=== PATIENT | female | born 1995 | race American Indian/Alaskan Native ===

== ENCOUNTER 2017-07-04 18:18 | Emergency (ER) | payer MEDICAID ==
[2017-07-04 21:03] LABS: Basophils % (Auto) 0.5 % (0.0-1.8); Eosinophils % (Auto) 0.5 % (0.0-4.3); Hematocrit 40.1 % (30.3-42.9); Hemoglobin 13.2 gm/dl (10.1-14.3); Lymphocytes # (Auto) 2.8 K/mm3 (1.2-5.4); Lymphocytes % (Auto) 30.9 % (13.4-35.0); Mean Corpuscular HGB Conc 33 % (30-34); Mean Corpuscular Volume 78 fl (79-97); Monocytes # (Auto) 0.8 K/mm3 (0.0-0.8); Monocytes % (Auto) 8.5 % (0.0-7.3); Platelet Count 235 K/mm3 (140-440); Red Blood Count 5.15 M/mm3 (3.65-5.03); Red Cell Distribution Width 16.3 % (13.2-15.2)
[2017-07-04 21:05] LABS: Mean Corpuscular Hemoglobin 26 pg (28-32)
[2017-07-04 21:09] LABS: Bacteria,Urine 1+ /HPF (Negative); Bilirubin,Urine NEG (Negative); Blood,Urine LG (Negative); Color,Urine Yellow (Yellow); Mucus,Urine FEW /HPF; Nitrite,Urine NEG (Negative); Protein,Urine <15 mg/dL mg/dL (Negative)
--- NOTE | 2017-07-05 02:16 | Ultrasound Report ---
FINAL REPORT EXAM: US OB TRANSVAGINAL HISTORY: abd and vag bleed TECHNIQUE: Transvaginal imaging was obtained the pelvis along with Doppler interrogation of the uterus and adnexa. FINDINGS: The uterus anteverted measuring 10 cm x 5.1 cm x 5.7 cm. Within the uterus is a gestational sac containing a yolk sac and pole. The crown-rump length is 2.9 millimeters corresponding to a 5 week 6 day IUP. The heart rate is 88 BPM. The cervix is closed. There is minimal free fluid the pelvis. The maternal right ovary is normal size contour and echotexture measuring 2.7 cm x 1.6 cm x 2.1 cm. The left ovary measures 2.7 cm x 1.6 cm x 1.9 cm. There is a 1.8 cm hypoechoic area possibly representing hemorrhagic cyst. IMPRESSION: Viable 5 week 6 day IUP as described. The heart is 80 BPM which is low. Follow-up study recommended. No evidence of a subchorionic hemorrhage. Minimal free fluid the pelvis.
--- NOTE | 2017-07-05 02:17 | Ultrasound Report ---
FINAL REPORT EXAM: US OB < = 14 WEEKS FETUS HISTORY: abd and vag bleed TECHNIQUE: Transabdominal imaging was obtained of the pelvis including Doppler interrogation of the uterus and adnexa. FINDINGS: The uterus is anteverted measuring 10 cm x 5.1 cm x 5.7 cm. Within the uterus is a gestational sac containing a pole and yolk sac. The pole measures 2.9 millimeters corresponding to a 5 week 6 day IUP. The heart rate is 80 BPM which is slightly diminished. There is no evidence of a subchorionic hemorrhage. There is minimal free fluid the pelvis. The maternal right ovary is normal size contour and echotexture measuring 2.7 cm x 1.6 cm x 2.1 cm. The maternal left ovary measures 2.7 cm x 1.6 cm x 1.9 cm. There is a hypoechoic focus measuring 1.8 cm in diameter possibly representing a hemorrhagic cyst. IMPRESSION: Single viable IUP, 5 weeks 6 day. The heart rate is 88 BPM which is below normal range. Follow-up studies recommended. 1.8 cm hypoechoic area in the left ovary possibly representing a hemorrhagic cyst. Minimal free fluid in the pelvis.
[2017-07-05 11:07] VITALS: BP 103/59
--- NOTE | 2017-07-05 11:16 | Emergency Department Report ---
HPI - General Chief Complaint: Vaginal Bleeding Time Seen by Provider: 07/05/17 11:10 - [facility] HPI: Patient is a 21-year-old female presents to ED complaining of vaginal bleeding times one week. Patient states about 2 weeks ago she took a home urine test was positive. She states about a week ago she states x-rays of vaginal spotting and 2 days ago for vaginal spotting got heavier. Patient states she did have sexual intercourse 2 days ago and noticed that the bleeding worsened after sexual intercourse. She states she has an appointment on 2017 with [facility]. Patient states this is her fifth and has 4 living children. She denies fevers/chills/nausea/vomiting/lower pelvic pain/dysuria/hematuria. ED Past Medical Hx - Past Medical History Previous Medical History?: Yes Hx Hypertension: No Hx Congestive Heart Failure: No Hx Diabetes: No Hx Deep Vein Thrombosis: No Hx Renal Disease: No Hx Sickle Cell Disease: No Hx Seizures: No Hx Asthma: Yes Hx COPD: No Hx HIV: No - Surgical History Past Surgical History?: No - Social History Smoking Status: Never Smoker Substance Use Type: Alcohol - Medications Home Medications: Home Medications Medication Instructions Recorded Confirmed Last Taken Type Vit Calc,Iron,Folic 1 each PO QDAY #40 tablet 07/05/17 Unknown Rx [ Vitamins] ED Review of Systems ROS: Stated complaint: POSSIBLE MISCARRAIGE Other details as noted in HPI Constitutional: denies: chills, fever Eyes: denies: eye pain, eye discharge, vision change ENT: denies: ear pain, throat pain Respiratory: denies: cough, shortness of breath, wheezing Cardiovascular: denies: chest pain, palpitations Endocrine: no symptoms reported Gastrointestinal: denies: abdominal pain, nausea, vomiting, diarrhea, constipation Genitourinary: other (vag bleed). denies: urgency, dysuria, frequency, hematuria, discharge Musculoskeletal: denies: back pain, joint swelling, arthralgia Skin: denies: rash, lesions Neurological: denies: headache, weakness, paresthesias Psychiatric: denies: anxiety, depression Hematological/Lymphatic: denies: easy bleeding, easy bruising Physical Exam - Physical Exam Vital Signs: Vital Signs 07/04/17 07/05/17 07/05/17 20:01 04:12 11:06 Temperature 98.7 F 98.1 F Pulse Rate 93 H 86 77 Respiratory 18 18 18 Rate Blood Pressure 124/83 125/75 Blood Pressure 103/59 [Left] O2 Sat by Pulse 98 99 99 Oximetry Physical Exam: GENERAL: Alert and oriented x3, no apparent distress, Normal Gait, atraumatic. HEAD: Head is normocephalic and a-traumatic. LUNGS: Symetrical with respiration, No wheezing, no rales or crackles, CTAB. HEART: S1, S2 present, regular rate and rhythm without murmur, no rubs, no gallops. Non tender to palpation ABDOMEN: No organomegaly was noted,Positive bowel sounds, soft, and non- distended. . Nontender to palpation on all Quadrants, NO CVA tenderness. BACK: Full range of motion, no spinal tenderness, nontender to palpation. GENITOURINARY: External genitalia without erythema, exudate or discharge. Vaginal vault is without discharge. Cervix is of normal color without lesion. Cervical os is closed. mild dark spot blood noted. Uterus is noted to be of normal size and nontender. No cervical motion tenderness. No masses are palpated. The adnexa are without masses or tenderness. NEUROLOGIC: The patient is cooperative with no focal neurologic deficits. SKIN: Warm and dry, No lesions, No ulceration or induration present. ED Course Vital Signs 07/04/17 07/05/17 07/05/17 20:01 04:12 11:06 Temperature 98.7 F 98.1 F Pulse Rate 93 H 86 77 Respiratory 18 18 18 Rate Blood Pressure 124/83 125/75 Blood Pressure 103/59 [Left] O2 Sat by Pulse 98 99 99 Oximetry ED Medical Decision Making - Lab Data Result diagrams: 07/04/17 20:20 Laboratory Last Values WBC 8.9 K/mm3 (4.5-11.0) 07/04/17 20:20 RBC 5.15 M/mm3 (3.65-5.03) H 07/04/17 20:20 Hgb 13.2 gm/dl (10.1-14.3) 07/04/17 20:20 Hct 40.1 % (30.3-42.9) 07/04/17 20:20 MCV 78 fl (79-97) L 07/04/17 20:20 MCH 26 pg (28-32) L 07/04/17 20:20 MCHC 33 % (30-34) 07/04/17 20:20 RDW 16.3 % (13.2-15.2) H 07/04/17 20:20 Plt Count 235 K/mm3 (140-440) 07/04/17 20:20 Lymph % (Auto) 30.9 % (13.4-35.0) 07/04/17 20:20 [place] % (Auto) 8.5 % (0.0-7.3) H 07/04/17 20:20 Eos % (Auto) 0.5 % (0.0-4.3) 07/04/17 20:20 Baso % (Auto) 0.5 % (0.0-1.8) 07/04/17 20:20 Lymph # 2.8 K/mm3 (1.2-5.4) 07/04/17 20:20 [place] # 0.8 K/mm3 (0.0-0.8) 07/04/17 20:20 Eos # 0.0 K/mm3 (0.0-0.4) 07/04/17 20:20 Baso # 0.0 K/mm3 (0.0-0.1) 07/04/17 20:20 Seg Neutrophils % 59.6 % (40.0-70.0) 07/04/17 20:20 Seg Neutrophils # 5.3 K/mm3 (1.8-7.7) 07/04/17 20:20 HCG, Qual Positive (Negative) 07/04/17 20:20 HCG, Quant 5021 mIU/mL (0-4) H 07/04/17 20:20 Urine Color Yellow (Yellow) 07/04/17 20:37 Urine Turbidity Clear (Clear) 07/04/17 20:37 Urine pH 5.0 (5.0-7.0) 07/04/17 20:37 Ur Specific [place] 1.019 (1.003-1.030) 07/04/17 20:37 Urine Protein <15 mg/dl mg/dL (Negative) 07/04/17 20:37 Urine Glucose (UA) Neg mg/dL (Negative) 07/04/17 20:37 Urine Ketones Neg mg/dL (Negative) 07/04/17 20:37 Urine Blood Lg (Negative) 07/04/17 20:37 Urine Nitrite Neg (Negative) 07/04/17 20:37 Urine Bilirubin Neg (Negative) 07/04/17 20:37 Urine Urobilinogen 2.0 mg/dL (<2.0) 07/04/17 20:37 Ur Leukocyte Esterase Sm (Negative) 07/04/17 20:37 Urine WBC (Auto) 17.0 /HPF (0.0-6.0) H 07/04/17 20:37 Urine RBC (Auto) 15.0 /HPF (0.0-6.0) 07/04/17 20:37 U Epithel Cells (Auto) 2.0 /HPF (0-13.0) 07/04/17 20:37 Urine Bacteria (Auto) 1+ /HPF (Negative) 07/04/17 20:37 Urine Mucus Few /HPF 07/04/17 20:37 Blood Type AB POSITIVE 07/04/17 20:30 Antibody Screen Negative 07/04/17 20:30 - Radiology Data Radiology results: report reviewed, image reviewed FINAL REPORT EXAM: US OB TRANSVAGINAL HISTORY: abd and vag bleed TECHNIQUE: Transvaginal imaging was obtained the pelvis along with Doppler interrogation of the uterus and adnexa. FINDINGS: The uterus anteverted measuring 10 cm x 5.1 cm x 5.7 cm. Within the uterus is a gestational sac containing a yolk sac and pole. The crown-rump length is 2.9 millimeters corresponding to a 5 week 6 day IUP. The heart rate is 88 BPM. The cervix is closed. There is minimal free fluid the pelvis. The maternal right ovary is normal size contour and echotexture measuring 2.7 cm x 1.6 cm x 2.1 cm. The left ovary measures 2.7 cm x 1.6 cm x 1.9 cm. There is a 1.8 cm hypoechoic area possibly representing hemorrhagic cyst. IMPRESSION: Viable 5 week 6 day IUP as described. The heart is 80 BPM which is low. Follow-up study recommended. No evidence of a subchorionic hemorrhage. Minimal free fluid the pelvis. Transcribed By: RB Dictated By: ASCENCION MCKENZIE MD Electronically Authenticated By: ASCENCION MCKENZIE MD Signed Date/Time: 07/04/17 3571 - Medical Decision Making 21 y o female presents with threatened AB. ED course: All labs within normal limits. OB ultrasound shows viable at 5 weeks 6 days with heart tone of 88 bpm I discussed his findings with the patient. I discussed the patient and of course will cause vaginal bleeding during . I also discussed the patient have vaginal bleeding after intercourse and sometimes normal in first trimester I discussed with the patient to keep her appointment for her last cycle on the and to receive follow-up ultrasound in 1 week. I discussed the patient is symptoms worsen or bleeding continues or worsens to return to ED immediately Patient is alert and oriented 3. Vital signs are stable. Patient states she understands instructions given. vitamins given in ED today. Discussed the patient make sure she drinks plenty of fluids and avoid intercourse until follow-up with OB Critical care attestation.: If time is entered above; I have spent that time in minutes in the direct care of this critically ill patient, excluding procedure time. ED Disposition Clinical Impression: Threatened in first trimester Normal IUP (intrauterine ) on ultrasound Qualifiers: Trimester: first trimester Qualified Code(s): Z34.91 - Encounter for supervision of normal , unspecified, first trimester Disposition: DC-01 TO HOME OR SELFCARE Is pt being admited?: No Does the pt Need Aspirin: No Condition: Stable Instructions: Threatened Miscarriage (ED), (ED) Additional Instructions: Make sure to follow up with the primary care physician as discussed. Follow-up with [facility] and keep the appointment for Sunday the Take all your medications as you've been prescribed. If you have any worsening symptoms or develop new symptoms please return to ED immediately. Prescriptions: Vit Calc,Iron,Folic [ Vitamins] 1 each PO QDAY #40 tablet Referrals: RAI NEUMANN MD [Primary Care Provider] - 3-5 Days Forms: Work/School Release Form(ED) Time of Disposition: 12:28
== END 2017-07-05 12:34 | disposition home or self-care (01) ==
LOC: ED 18:18
DX: Z53.21 Procedure and treatment not carried out due to patient leaving prior to being seen by health care provider (principal)
CPT/HCPCS: 36415; 76801; 76817; 81001; 84702; 84703; 85025; 86850; 86900; 86901

== ENCOUNTER 2019-01-22 02:25 | Emergency (ER) | payer MEDICAID ==
[2019-01-22 02:30] VITALS: BP 121/75
--- NOTE | 2019-01-22 03:04 | Emergency Department Report ---
HPI - General Chief Complaint: Allergic Reaction Time Seen by Provider: 01/22/19 03:03 - HPI HPI: 23 yo with rash on arms and chest and abd. Started weeks ago. No one in home has it. no systemic symptoms. Pt is not sure what it is. VSS No fever. ABC intact. ED Past Medical Hx - Past Medical History Previous Medical History?: Yes Hx Hypertension: No Hx Congestive Heart Failure: No Hx Diabetes: No Hx Deep Vein Thrombosis: No Hx Renal Disease: No Hx Sickle Cell Disease: No Hx Seizures: No Hx Asthma: Yes (childhood asthma) Hx COPD: No Hx HIV: No - Surgical History Past Surgical History?: No - Social History Smoking Status: Never Smoker Substance Use Type: None - Medications Home Medications: Home Medications Medication Instructions Recorded Confirmed Last Taken Type Triamcinolone 0.5% [Kenalog 0.5% 1 applic TP TID #1 tube 01/22/19 Unknown Rx CREAM] predniSONE [Deltasone] 20 mg PO DAILY #5 tablet 01/22/19 Unknown Rx ED Review of Systems ROS: Stated complaint: POSS ALLERGIC REACTION Other details as noted in HPI Comment: All other systems reviewed and negative Physical Exam - Physical Exam Vital Signs: Vital Signs 01/22/19 02:28 Temperature 98.4 F Pulse Rate 84 Respiratory 18 Rate Blood Pressure 121/75 O2 Sat by Pulse 98 Oximetry Physical Exam: alert and oriented s1s2 lungs cta abd snt no wheezing ED Course Vital Signs 01/22/19 02:28 Temperature 98.4 F Pulse Rate 84 Respiratory 18 Rate Blood Pressure 121/75 O2 Sat by Pulse 98 Oximetry ED Medical Decision Making - Medical Decision Making abc intact vss no wheezing simple rash medicated in ER Dc home with derm follow up Vital Signs 01/22/19 02:28 Temperature 98.4 F Pulse Rate 84 Respiratory 18 Rate Blood Pressure 121/75 O2 Sat by Pulse 98 Oximetry Critical care attestation.: If time is entered above; I have spent that time in minutes in the direct care of this critically ill patient, excluding procedure time. ED Disposition Clinical Impression: Skin rash Disposition: DC-01 TO HOME OR SELFCARE Is pt being admited?: No Does the pt Need Aspirin: No Condition: Stable Instructions: Acute Rash (ED), Eczema (ED) Additional Instructions: meds as ordered today follow up with derm as we discussed over the counter bendadryl can be used to suppress the itching Referrals: ALBER MERCADO MD [Referring] - 3-5 Days Time of Disposition: 03:09
[2019-01-22] MEDS ORDERED: PEPCID PO ONE (03:10)
[2019-01-22] MEDS ORDERED: DELTASONE PO ONE (03:10)
== END 2019-01-22 03:15 | disposition home or self-care (01) ==
LOC: ED 02:25
DX: R21 Rash and other nonspecific skin eruption (principal); J45.909 Unspecified asthma, uncomplicated; Z79.899 Other long term (current) drug therapy
CPT/HCPCS: 99282; J7512

== ENCOUNTER 2020-05-19 10:20 | Outpatient (CLI) | payer MEDICAID ==
[2020-05-19 11:50] VITALS: BP 111/61
[2020-05-19 12:22] LABS: Bilirubin,Urine NEG (Negative); Blood,Urine SM (Negative); Color,Urine Yellow (Yellow); Mucus,Urine 3+ /HPF; Urobilinogen,Urine < 2.0 mg/dL (<2.0)
[2020-05-19] MEDS ORDERED: LACTATED RINGERS 1,000 ML ONE (12:36)
[2020-05-19] MEDS ORDERED: LACTATED RINGERS 1,000 ML IV ONE (12:37)
--- NOTE | 2020-05-19 18:22 | Ultrasound Report ---
ULTRASOUND OBSTETRIC LIMITED INDICATION / CLINICAL INFORMATION: vaginal bleeding, dilated. Clinical Gestational Age (GA): 20.0 weeks.days COMPARISON: None available. FINDINGS: HEART RATE (beats per minute): 153 PRESENTATION: Cephalic. CERVICAL LENGTH: 4.9 cm. ADDITIONAL FINDINGS: None. IMPRESSION: 1. Single living intrauterine gestation without visualized sonographic abnormality. 2. Cervical length of 4.9 cm. Signer Name: Tayo Maynard MD Signed: 05/19/2020 6:21 PM Workstation Name: [id number]
--- NOTE | 2020-05-20 07:11 | Ultrasound Report ---
ULTRASOUND OBSTETRIC LIMITED INDICATION / CLINICAL INFORMATION: vaginal bleeding, dilated. Clinical Gestational Age (GA): 20.0 weeks.days COMPARISON: None available. FINDINGS: HEART RATE (beats per minute): 153 PRESENTATION: Cephalic. CERVICAL LENGTH: 4.9 cm. ADDITIONAL FINDINGS: None. IMPRESSION: 1. Single living intrauterine gestation without visualized sonographic abnormality. 2. Cervical length of 4.9 cm. Signer Name: Tayo Maynard MD Signed: 05/19/2020 4:50 PM Workstation Name: [id number]
== END 2020-05-19 17:19 | disposition home or self-care (01) ==
LOC: TRG 10:20 → APU 10:21 → TRG 17:19
PROVIDERS: ATTEND Obstetrics & Gynecology
DX: O26.852 Spotting complicating pregnancy, second trimester (principal); O47.02 False labor before 37 completed weeks of gestation, second trimester; Z3A.20 20 weeks gestation of pregnancy
CPT/HCPCS: 59025; 76815; 76817; 81001; 87086; J7120; 96360

== ENCOUNTER 2020-09-22 14:32 | Inpatient (IN) | payer MEDICAID ==
[2020-09-22] MEDS ORDERED: LACTATED RINGERS 1,000 ML IV SCH (15:30)
[2020-09-22] MEDS ORDERED: LACTATED RINGERS 1,000 ML ONE ×3 (15:36→17:17)
[2020-09-22] MEDS ORDERED: DOCUSATE SODIUM 100 MG CAP PO PRN (16:05)
[2020-09-22] MEDS ORDERED: ACETAMINOPHEN 325 MG TAB PO PRN (16:05)
[2020-09-22] MEDS ORDERED: AMPICILLIN/NS 2 GM/100 ML 2 GM/100 ML BAG IV ONE (16:05)
[2020-09-22] MEDS ORDERED: ONDANSETRON 4 MG/2 ML INJ IV PRN ×2 (16:05→19:40)
--- NOTE | 2020-09-22 16:18 | History and Physical Report ---
History of Present Illness Date of examination: 09/22/20 History of present illness: PT is a at 38 weeks today who presents with SROM clear. Gross LOF noted on RN exam. No VB. Good FM.. care started at 18 weeks. Varicella nonimmune. Positive Marijuana. Past History Past Medical History: other (depression- no meds needed.) Past Surgical History: no surgical history HAY BUCKLER History: herpes, trichomonas Social history: other (marijuana) - Obstetrical History Expected Date of Delivery: 10/06/20 Actual Gestation: 38 Week(s) 0 Day(s) : 7 Hx # Term Pregnancies: 5 Spontaneous Abortions: 1 Number of Living Children: 5 Medications and Allergies Allergies Allergy/AdvReac Type Severity Reaction Status Date / Time No Known Allergies Allergy Verified 09/22/20 14:59 Home Medications Medication Instructions Recorded Confirmed Last Taken Type Triamcinolone 0.5% [Kenalog 0.5% 1 applic TP TID #1 tube 01/22/19 Unknown Rx CREAM] predniSONE [Deltasone] 20 mg PO DAILY #5 tablet 01/22/19 Unknown Rx Active Meds: Active Medications Acetaminophen (Acetaminophen 325 Mg Tab) 650 mg PO Q4H PRN PRN Reason: Pain MILD(1-3)/Fever >100.5/SCOTT Docusate Sodium (Docusate Sodium 100 Mg Cap) 100 mg PO Q12H PRN PRN Reason: Constipation Ampicillin Sodium (Ampicillin/Ns 2 Gm/100 Ml) 2 gm in 100 mls @ 100 mls/hr IV ONCE ONE; Protocol Stop: 09/22/20 17:04 Ampicillin Sodium (Ampicillin/Ns 1 Gm/50 Ml) 1 gm in 50 mls @ 100 mls/hr IV Q4H AMEVE; Protocol Multivitamins/Iron/Calcium ( Snz12-Qk Fumarate-Folic Acid Vit Tab) 1 each PO QDAY MAEVE Ondansetron HCl (Ondansetron 4 Mg/2 Ml Inj) 4 mg IV Q6H PRN PRN Reason: Nausea And Vomiting Review of Systems All systems: negative (except HPI) - Vital Signs Vital signs: Vital Signs Temp Pulse Resp BP 98.8 F 96 H 21 115/68 09/22/20 14:50 09/22/20 14:50 09/22/20 14:50 09/22/20 14:50 Temp Pulse Resp BP Pulse Ox 98.8 F 95 H 21 115/68 99 09/22/20 14:50 09/22/20 15:44 09/22/20 14:50 09/22/20 14:50 09/22/20 15:44 - Physical Exam Genitourinary (Female): Positive: normal external genitalia. Negative: perineal/vulvar lesions Vulva: both: normal - Obstetrical FHR: auscultation normal Cervical Dilatation: 4 (per RN) Cervical Effacement Percentage: 70 station: -2 Uterine Contraction Pattern: Irregular Results Abnormal lab results 09/22/20 Range/Units 15:25 Membranes Rupture Positive A (Negative) All other labs normal. Assessment and Plan - Patient Problems (1) SROM (spontaneous rupture of membranes) Current Visit: No Status: Acute Plan to address problem: Will admit. Start Abx for unknown GBS, which was only drawn yesterday. Start Pit augmentation. Expectant care.
[2020-09-22 16:31] LABS: Basophils # (Auto) 0.1 K/mm3 (0.0-0.1); Basophils % (Auto) 0.5 % (0.0-1.8); Eosinophils # (Auto) 0.1 K/mm3 (0.0-0.4); Eosinophils % (Auto) 0.7 % (0.0-4.3); Hematocrit 40.7 % (30.3-42.9); Hemoglobin 13.5 gm/dl (10.1-14.3); Lymphocytes % (Auto) 20.7 % (13.4-35.0); Mean Corpuscular HGB Conc 33 % (30-34); Mean Corpuscular Volume 79 fl (79-97); Monocytes % (Auto) 10.5 % (0.0-7.3); Platelet Count 162 K/mm3 (140-440); Red Blood Count 5.16 M/mm3 (3.65-5.03); Red Cell Distribution Width 17.4 % (13.2-15.2)
[2020-09-22] MEDS ORDERED: BUTORPHANOL 2 MG/1 ML INJ IV PRN (17:00)
[2020-09-22] MEDS ORDERED: OXYTOCIN DRIP 30 UNITS/500 ML BAG IV SCH ×2 (17:00→20:00)
[2020-09-22] MEDS ORDERED: ePHEDrine SULFATE 50 MG/1 ML INJ ONE (18:30)
[2020-09-22] MEDS ORDERED: ePHEDrine SULFATE 50 MG/1 ML INJ IV PRN (18:49)
[2020-09-22] MEDS ORDERED: NALOXONE 2 MG/2 ML INJ IV PRN (18:49)
[2020-09-22] MEDS ORDERED: NalbUPHINE 10 MG/1 ML INJ IV PRN (18:49)
[2020-09-22] MEDS ORDERED: diphenhydrAMINE 50 MG/ML VIAL IV PRN (18:49)
[2020-09-22] MEDS ORDERED: LACTATED RINGERS 250 ML IV SOLN IV ONE (18:49)
--- NOTE | 2020-09-22 18:50 | Progress Note ---
Labor Epidural - Labor Epidural Start Time: 18:35 Stop Time: 18:50 Performed by:: KELLI VELOZ (Em LEUNG) Procedure: Patient is requesting epidural for labor and pain. H&P, labs were reviewed. Patient IDed, H&P reviewed, all questions and concerns were answered, and consent was signed. Timeout was performed at bedside. Patient in sitting position. Sterile prep and drape was performed. 3ml of 1% lidocaine skin wheal at L[3]- L [4]. 18-gauge Tuohy epidural needle was advanced to loss of resistance with air technique 6cm. Negative CSF negative blood. Epidural catheter advanced to [11] centimeters. [negative] Aspiration [negative] test dose. Sterile dressing applied. Patient tolerated procedure.
--- NOTE | 2020-09-22 18:50 | Anesthesia Consultation ---
Anesthesia Consult and Med Hx Date of service: 09/22/20 - Airway Anesthetic Teeth Evaluation: Good ROM Head & Neck: Adequate Mental/Hyoid Distance: Adequate Mallampati Class: Class II Intubation Access Assessment: Probably Good - Pulmonary Exam CTA: Yes - Cardiac Exam Cardiac Exam: RRR - Pre-Operative Health Status ASA Pre-Surgery Classification: ASA2 Proposed Anesthetic Plan: Epidural - Pulmonary Hx Smoking: No Hx Asthma: Yes (childhood asthma) COPD: No Hx Pneumonia: No Hx Sleep Apnea: No - Cardiovascular System Hx Hypertension: No Hx Heart Attack/AMI: No Hx Angina: No - Central Nervous System Hx Seizures: No Hx Psychiatric Problems: No - Gastrointestinal Hx Gastroesophageal Reflux Disease: No - Endocrine Hx Renal Disease: No Hx End Stage Renal Disease: No Hx Insulin Dependent Diabetes: No Hx Non-Insulin Dependent Diabetes: No Hx Hypothyroidism: No Hx Hyperthyroidism: No - Hematic Hx Anemia: No Hx Sickle Cell Disease: No - Other Systems Hx Alcohol Use: No
[2020-09-22] MEDS ORDERED: fentaNYL-BUPIV 2 MCG/ML-0.125% 200 MCG/100 ML BAG EPIDURAL SCH (19:00)
[2020-09-22] MEDS ORDERED: MINERAL OIL 30 ML ORAL LIQD ONE (19:13)
[2020-09-22] MEDS ORDERED: OXYTOCIN 10 UNIT/1 ML INJ IM ONE (19:23)
[2020-09-22] MEDS ORDERED: OXYTOCIN 10 UNIT/1 ML INJ ONE (19:34)
--- NOTE | 2020-09-22 19:39 | Procedure Note ---
OB Delivery Note - Delivery Date of Delivery: 09/22/20 Surgeon: RAINE HAGEN Estimated blood loss: 200cc - Vaginal Delivery presentation: vertex Delivery position: OA Delivery induction: none Delivery augmentation: pitocin Delivery monitor: external FHT Route of delivery: Delivery placenta: spontaneous Delivery cord: 3 umbilical vessels Episiotomy: none Delivery laceration: none Anesthesia: epidural Delivery comments: Patient precipitously delivered and was delivered by the nurse in the room. Delayed cord clamping and cut. Baby to the mother and then the warmer. Placenta delivered spontaneously and was delivered in its entirety. No lacerations. Good hemostasis throughout. Mother and baby stable. - A at 1 minute: 8 at 5 minutes: 9 Infant Gender: Male
[2020-09-22] MEDS ORDERED: WITCH HAZEL/ GLYCERIN PAD TP PRN (19:40)
[2020-09-22] MEDS ORDERED: LANOLIN/ZINC/DIMETHICONE (LANSINOH) 7 GM TP PRN ×2 (19:40)
[2020-09-22] MEDS ORDERED: PROMETHAZINE 25 MG RECT SUPP PR PRN (19:40)
[2020-09-22] MEDS ORDERED: oxyCODONE /ACETAMINOPHEN 5-325MG TAB PO PRN (19:40)
[2020-09-22] MEDS ORDERED: BENZOCAINE/MENTHOL 20/0.5% TOP SPRAY 56 GM TP PRN (19:40)
[2020-09-22] MEDS ORDERED: diphenhydrAMINE 25 MG CAP PO PRN (19:40)
[2020-09-22] MEDS ORDERED: PROMETHAZINE 25 MG TAB PO PRN (19:40)
[2020-09-22] MEDS ORDERED: METHYLERGONOVINE MALEATE 0.2 MG/ML VIAL IM PRN (19:40)
[2020-09-22] MEDS ORDERED: MAGNESIUM HYDROXIDE (MOM) ORAL LIQD UDC PO PRN (19:40)
[2020-09-22] MEDS ORDERED: AMPICILLIN/NS 1 GM/50 ML 1 GM/50 ML BAG IV SCH (20:00)
[2020-09-23] MEDS: IBUPROFEN 600 MG TAB PO SCH ×3 (03:48→14:03)
[2020-09-23 09:14] LABS: Hematocrit 36.4 % (30.3-42.9)
[2020-09-23] MEDS: PRENATAL VIT27-FE FUMARATE-FOLIC ACID VIT TAB PO SCH (10:30)
--- NOTE | 2020-09-23 10:51 | Progress Note ---
Assessment and Plan A: S/P Hx of depression p: Continue routine pp care Psych consult prior to d/c D/C home tomm if stable - Patient Problems (1) History of depression Current Visit: Yes Status: Acute Subjective - Subjective Date of service: 09/23/20 Principal diagnosis: S/P Patient reports: appetite normal, voiding normally, pain well controlled, ambulating normally [place]: doing well, other (Flat affect; pt denies suicidal or homicidal ideations), bottle feeding Objective - Vital Signs Latest vital signs: Vital Signs Temp Pulse Resp BP BP Pulse Ox 09/23/20 08:29 98.1 F 71 18 111/72 100 09/22/20 21:58 85 98 09/22/20 21:53 82 100 09/22/20 21:48 85 146/99 98 09/22/20 21:43 76 99 09/22/20 21:38 74 100 09/22/20 21:33 77 142/97 98 09/22/20 21:28 69 100 09/22/20 21:25 71 152/96 09/22/20 21:23 78 100 09/22/20 21:19 69 142/102 09/22/20 21:18 69 100 09/22/20 21:16 69 141/96 09/22/20 21:13 69 100 09/22/20 21:08 69 100 09/22/20 21:04 67 92 09/22/20 21:03 70 145/102 99 09/22/20 21:00 98.4 F 68 16 145/102 98 09/22/20 20:58 72 100 09/22/20 20:53 75 100 09/22/20 20:48 74 135/98 100 09/22/20 20:43 73 100 09/22/20 20:39 79 85 09/22/20 20:38 81 100 09/22/20 20:33 73 134/93 100 09/22/20 20:28 77 99 09/22/20 20:23 89 100 09/22/20 20:19 75 135/92 09/22/20 20:18 81 100 09/22/20 20:13 89 100 09/22/20 20:08 85 100 09/22/20 20:03 88 100 09/22/20 20:00 98.8 F 89 16 117/78 100 09/22/20 19:58 86 100 09/22/20 19:53 84 100 09/22/20 19:49 89 117/78 09/22/20 19:48 85 99 09/22/20 19:46 81 113/77 09/22/20 19:44 83 120/85 09/22/20 19:43 94 H 118/95 99 09/22/20 19:40 81 124/74 09/22/20 19:38 79 134/83 100 09/22/20 19:36 81 138/72 09/22/20 19:34 86 116/68 09/22/20 19:33 87 100 09/22/20 19:32 127/59 09/22/20 19:30 110 H 133/73 09/22/20 19:29 93 H 129/72 09/22/20 19:28 92 H 99 09/22/20 19:27 109 H 202/107 09/22/20 19:24 95 H 122/86 09/22/20 19:23 96 H 99 09/22/20 19:22 94 H 120/85 09/22/20 19:20 96 H 126/90 09/22/20 19:18 98 H 136/104 100 09/22/20 19:16 97 H 131/98 09/22/20 19:14 100 H 134/90 09/22/20 19:13 101 H 98 09/22/20 19:12 83 134/93 09/22/20 19:10 100 H 142/102 09/22/20 19:08 89 130/90 100 09/22/20 19:06 91 H 127/90 09/22/20 19:04 91 H 111/72 09/22/20 19:03 89 100 09/22/20 19:02 88 124/82 09/22/20 19:00 92 H 141/99 09/22/20 18:58 91 H 123/82 100 09/22/20 18:56 85 122/91 09/22/20 18:54 94 H 137/96 09/22/20 18:52 90 135/83 09/22/20 18:50 95 H 124/93 09/22/20 18:48 95 H 127/86 09/22/20 18:46 96 H 130/86 09/22/20 18:38 93 H 141/81 09/22/20 18:24 80 125/78 09/22/20 18:08 85 117/68 09/22/20 18:06 18 09/22/20 17:53 76 125/74 09/22/20 17:38 78 126/69 09/22/20 17:23 82 107/56 09/22/20 16:47 81 128/79 09/22/20 15:44 95 H 99 09/22/20 15:39 97 H 99 09/22/20 15:34 94 H 100 09/22/20 15:33 70 L 09/22/20 14:52 83 85 09/22/20 14:51 96 H 98 09/22/20 14:50 98.8 F 96 H 21 115/68 Intake and Output 09/22/20 09/23/20 09/23/20 22:59 06:59 14:59 Other: Weight 184 lb Estimated Blood Loss 200 - Exam Breasts: Present: normal Abdomen: Present: normal appearance, soft, normal bowel sounds Vulva: both: normal Uterus: Present: normal, firm, fundal height below umbilicus Extremities: Present: normal - Labs Labs: Abnormal lab results 09/22/20 09/22/20 Range/Units 15:25 16:05 RBC 5.16 H (3.65-5.03) M/mm3 MCH 26 L (28-32) pg RDW 17.4 H (13.2-15.2) % [place] % (Auto) 10.5 H (0.0-7.3) % [place] # (Auto) 1.0 H (0.0-0.8) K/mm3 Membranes Rupture Positive A (Negative)
--- NOTE | 2020-09-23 15:34 | Post Anesthesia Evaluation ---
- Post Anesthesia Evaluation Patient Participated: Yes Airway Patent: Yes Stable Respiratory Function: Yes Nausea/Vomiting: No Temp > 96.8F: Yes Pain Manageable: Yes Adequeate Hydration: Yes Anesthesia Complications: No Block Receding Appropriately: Yes Patient on Ventilator: No
[2020-09-24] MEDS: IBUPROFEN 600 MG TAB PO SCH ×3 (05:15→13:48)
--- NOTE | 2020-09-24 12:11 | Consultation ---
History of Present Illness - Reason for Consult Consult date: 09/24/20 Reason for consult: depression - History of Present Psychiatric Illness Chandan Gonsales is a 24y/o female admitted for childbirth. During my interview with the patient, she is a/ox 3. She is calm and cooperative. She smiles intermittently. She has her baby laying next to her. The patient says she mccracken ffers from depression. She says it was worse with this . She denies seeing a psychiatrist or being on any medication. She says she would like some but wasn't started on any because she was . The patient denies SI/HI or any fear of endangerment for herself or anyone else. She denies hallucinations of any kind. She also denies any illicit drug use. PAST PSYCHIATRIC HISTORY: Diagnoses: post depression Suicide attempts or Self-harm behavior: Denies Prior psychiatric hospitalizations: Denies Substance Abuse history: Denies Previous psychiatric medications tried: Denies Outpatient treatment: Denies PAST MEDICAL HISTORY: None reported Family Psychiatric History: None reported or documented SOCIAL HISTORY Marital Status: single Living Arrangements: with children Employment Status: unemployed Access to guns/weapons: Denies Education: high school History of Abuse: Denies Legal History: Denies REVIEW OF SYSTEMS Constitutional: Negative for weight loss ENT: Negative for stridor Respiratory: Negative for cough or hemoptysis All other systems reviewed and are negative MENTAL STATUS EXAMINATION General Appearance and Behavior: Age appropriate, good hygiene, not wearing appropriate clothes, good eye contact, cooperative polite with questioning. Cooperation: Participating/engaged Psychomotor Behavior: Psychomotor normal Mood: "alright right now" Affect and affective range: congruent with stated mood Thought Process: Goal directed Speech: normal tone and pace Intellectual Functioning: Average Thought Content Suicidal Ideation: Denies Homicidal Ideation: Denies Hallucinations: Denies Delusions: None elicited Impulse Control: Unimpaired Insight and Judgment: Limited insight and judgment Memory: Normal Attention: Normal Orientation: A/o x 3 Assessment and Plan (1) Major Depressive Disorder Current Visit: Yes Status: Acute Treatment Plan Start Zoloft 25mg po daily Benefits and possible side effects of med explained to patient. Sitter: defer to primary Medical: Per primary Disposition: Do not recommend acute psychiatric inpatient treatment The chemical engraver to give the patient resources for CBT and psychiatry services She is to follow up in 7 to 14 days upon discharge Will sign off. Case staffed with Dr. Hernandez Medications and Allergies Allergies Allergy/AdvReac Type Severity Reaction Status Date / Time No Known Allergies Allergy Verified 09/22/20 14:59 Home Medications Medication Instructions Recorded Confirmed Last Taken Type Triamcinolone 0.5% [Kenalog 0.5% 1 applic TP TID #1 tube 01/22/19 Unknown Rx CREAM] predniSONE [Deltasone] 20 mg PO DAILY #5 tablet 01/22/19 Unknown Rx Active Meds: Active Medications Acetaminophen (Acetaminophen 325 Mg Tab) 650 mg PO Q4H PRN PRN Reason: Pain MILD(1-3)/Fever >100.5/SCOTT Benzocaine/Menthol (Benzocaine/Menthol 20/0.5% [place] 56 Gm) 1 spray TP PRN PRN PRN Reason: Episiotomy Pain Bisacodyl (Bisacodyl 10 Mg Rect Supp) 10 mg DE BID PRN PRN Reason: Constipation Butorphanol Tartrate (Butorphanol 2 Mg/1 Ml Inj) 1 mg IV Q2H PRN PRN Reason: Labor Pain Last Admin: 09/22/20 17:06 Dose: 1 mg Documented by: Diphenhydramine HCl (Diphenhydramine 50 Mg/Ml Vial) 12.5 mg IV Q2H PRN PRN Reason: Itching Diphenhydramine HCl (Diphenhydramine 25 Mg Cap) 25 mg PO Q6H PRN PRN Reason: Itching Docusate Sodium (Docusate Sodium 100 Mg Cap) 100 mg PO Q12H PRN PRN Reason: Constipation Last Admin: 09/22/20 23:22 Dose: 100 mg Documented by: Ephedrine Sulfate (Ephedrine Sulfate 50 Mg/1 Ml Inj) 10 mg IV Q2M PRN PRN Reason: Hypotension Ampicillin Sodium (Ampicillin/Ns 1 Gm/50 Ml) 1 gm in 50 mls @ 100 mls/hr IV Q4H MAEVE; Protocol Oxytocin/Sodium Chloride (Pitocin/Ns 30 Unit/500ml) 30 units in 500 mls @ 2 mls/hr IV TITR MAEVE; Protocol Last Admin: 09/22/20 16:43 Dose: 2 mls/hr, 2 mls/hr Documented by: Lactated Ringer's (Lactated Ringers) 1,000 mls @ 125 mls/hr IV DIRECT MAEVE Fentanyl/Bupivacaine/Sodium Chlor (Fentanyl-Bupiv 2 Mcg/Ml-0.125%) 200 mcg in 100 mls @ 12 mls/hr EPIDURAL TITR MAEVE; Protocol Oxytocin/Sodium Chloride (Pitocin/Ns 30 Unit/500ml) 30 units in 500 mls @ 40 mls/hr IV TITR MAEVE; Protocol Ibuprofen (Ibuprofen 600 Mg Tab) 600 mg PO Q6H MAEVE Last Admin: 09/24/20 05:15 Dose: 600 mg Documented by: Magnesium Hydroxide (Magnesium Hydroxide (Mom) Oral Liqd Udc) 30 ml PO HS PRN PRN Reason: Constipation Methylergonovine Maleate (Methylergonovine Maleate 0.2 Mg/Ml Vial) 0.2 mg IM Q4H PRN PRN Reason: Uterine Bleeding Multi-Ingredient Ointment (Lanolin/Zinc/Dimethicone (Lansinoh) 7 Gm) 1 applic TP PRN PRN PRN Reason: Sore Nipples Multi-Ingredient Ointment (Lanolin/Zinc/Dimethicone (Lansinoh) 7 Gm) 1 applic TP PRN PRN PRN Reason: dryness/cracking Multivitamins/Iron/Calcium ( [id number]-[id number] Fumarate-Folic Acid Vit Tab) 1 each PO QDAY [facility] Last Admin: 09/23/20 10:30 Dose: 1 each Documented by: Nalbuphine HCl (Nalbuphine 10 Mg/1 Ml Inj) 2.5 mg IV Q2H PRN PRN Reason: Itching Naloxone HCl (Naloxone 2 Mg/2 Ml Inj) 0.2 mg IV Q5M PRN PRN Reason: Respiratory sedation Ondansetron HCl (Ondansetron 4 Mg/2 Ml Inj) 4 mg IV Q8H PRN PRN Reason: Nausea And Vomiting Oxycodone/Acetaminophen (Oxycodone /Acetaminophen 5-325mg Tab) 1 tab PO Q6H PRN PRN Reason: Pain, Moderate (4-6) Last Admin: 09/22/20 23:21 Dose: 1 tab Documented by: Promethazine HCl (Promethazine 25 Mg Rect Supp) 25 mg DE Q6H PRN PRN Reason: Nausea And Vomiting Promethazine HCl (Promethazine 25 Mg Tab) 25 mg PO Q6H PRN PRN Reason: Nausea And Vomiting Witch Sherron/Glycerin (Witch Sherron/ Glycerin Pad) 1 each TP PRN PRN PRN Reason: Hemorrhoid/cleansing/soothing Mental Status Exam - Vital signs Last Vital Signs Temp 98.1 F 09/24/20 09:30 Pulse 74 09/24/20 09:30 Resp 18 09/24/20 09:30 BP 118/79 09/24/20 09:30 Pulse Ox 99 09/23/20 23:30 Results Result Diagrams: 09/23/20 09:00 All other labs normal.
[2020-09-24] MEDS ORDERED: SERTRALINE 25 MG TAB PO SCH (13:00)
[2020-09-24] MEDS: PRENATAL VIT27-FE FUMARATE-FOLIC ACID VIT TAB PO SCH (13:48)
[2020-09-24 17:44] VITALS: BP 122/74
--- NOTE | 2020-09-24 18:56 | Progress Note ---
Assessment and Plan PPD#2 doing well and stable by psychiatrist evaluation for outpatient treatment of depression with zoloft 1. Will discharge pt home now 2. Scripts for zoloft 25mg daily and motrin prn 3. Nurse told that pt desires more milk for baby All questions encouraged and answered Subjective Date of service: 09/24/20 Principal diagnosis: S/P Interval history: pt has no complaints. pt desires more milk for baby. pt states her vaginal bleeding is less than a period. Denies pelvic pain. pt seen by psychiatrist today and pt denies SI/AVH/HI. pt desires to go home Objective - Constitutional Vitals: Vital Signs - 12hr 09/24/20 09/24/20 09/24/20 09:30 13:00 16:00 Temperature 98.1 F 98.2 F 98.4 F Pulse Rate 74 73 76 Respiratory 18 18 18 Rate Blood Pressure 118/79 123/73 122/74 [Right] General appearance: Present: no acute distress - Breasts Breasts: normal - Gastrointestinal General gastrointestinal: Present: soft, non-tender - Genitourinary Female genitourinary: other (Fundus firm and below the umbilicus) - Neurologic Neurologic: moves all extremities - Psychiatric Psychiatric: cooperative - Labs CBC & Chem 7: 09/23/20 09:00 Medications & Allergies - Medications Allergies/Adverse Reactions: Allergies No Known Allergies Allergy (Verified 09/22/20 14:59) Home Medications: Home Medications Medication Instructions Recorded Confirmed Last Taken Type Triamcinolone 0.5% [Kenalog 0.5% 1 applic TP TID #1 tube 01/22/19 09/24/20 Unknown Rx CREAM] predniSONE [Deltasone] 20 mg PO DAILY #5 tablet 01/22/19 09/24/20 Unknown Rx Sertraline [Zoloft] 25 mg PO QDAY #30 tab 09/24/20 Unknown Rx Active Medications: Generic Name Dose Route Start Last Admin Trade Name Freq PRN Reason Stop Dose Admin Acetaminophen 650 mg 09/22/20 16:05 Acetaminophen 325 Mg Tab PO Q4H PRN Pain MILD(1-3)/Fever >100.5/SCOTT Benzocaine/Menthol 1 spray 09/22/20 19:40 Benzocaine/Menthol 20/0.5% Top [place] 56 Gm TP PRN PRN Episiotomy Pain Bisacodyl 10 mg 09/22/20 19:40 Bisacodyl 10 Mg Rect Supp [place] BID PRN Constipation Butorphanol Tartrate 1 mg 09/22/20 17:00 09/22/20 17:06 Butorphanol 2 Mg/1 Ml Inj IV 1 mg Q2H PRN Administration Labor Pain Diphenhydramine HCl 12.5 mg 09/22/20 18:49 Diphenhydramine 50 Mg/Ml Vial IV Q2H PRN Itching Diphenhydramine HCl 25 mg 09/22/20 19:40 Diphenhydramine 25 Mg Cap PO Q6H PRN Itching Docusate Sodium 100 mg 09/22/20 16:05 09/22/20 23:22 Docusate Sodium 100 Mg Cap PO 100 mg Q12H PRN Administration Constipation Ephedrine Sulfate 10 mg 09/22/20 18:49 Ephedrine Sulfate 50 Mg/1 Ml Inj IV Q2M PRN Hypotension Ampicillin Sodium 1 gm in 50 mls @ 100 mls/hr 09/22/20 20:00 Ampicillin/Ns 1 Gm/50 Ml IV Q4H MAEVE Protocol Oxytocin/Sodium Chloride 30 units in 500 mls @ 2 mls/hr 09/22/20 17:00 09/22/20 16:43 Pitocin/Ns 30 Unit/500ml IV 2 mls/hr TITR MAEVE 2 mls/hr Administration Protocol Lactated Ringer's 1,000 mls @ 125 mls/hr 09/22/20 15:30 Lactated Ringers IV DIRECT MAEVE Fentanyl/Bupivacaine/Sodium Chlor 200 mcg in 100 mls @ 12 mls/hr 09/22/20 19:00 Fentanyl-Bupiv 2 Mcg/Ml-0.125% EPIDURAL TITR [facility] Protocol Oxytocin/Sodium Chloride 30 units in 500 mls @ 40 mls/hr 09/22/20 20:00 Pitocin/Ns 30 Unit/500ml IV TITR [facility] Protocol Ibuprofen 600 mg 09/23/20 00:00 09/24/20 13:48 Ibuprofen 600 Mg Tab PO Not Given Q6H MAEVE Magnesium Hydroxide 30 ml 09/22/20 19:40 Magnesium Hydroxide (Mom) Oral Liqd Udc PO HS PRN Constipation Methylergonovine Maleate 0.2 mg 09/22/20 19:40 Methylergonovine Maleate 0.2 Mg/Ml Vial IM Q4H PRN Uterine Bleeding Multi-Ingredient Ointment 1 applic 09/22/20 19:40 Lanolin/Zinc/Dimethicone (Lansinoh) 7 Gm TP PRN PRN Sore Nipples Multi-Ingredient Ointment 1 applic 09/22/20 19:40 Lanolin/Zinc/Dimethicone (Lansinoh) 7 Gm TP PRN PRN dryness/cracking Multivitamins/Iron/Calcium 1 each 09/23/20 10:00 09/24/20 13:48 Pcm21-Eo Fumarate-Folic Acid Vit Tab PO Not Given QDAY MAEVE Nalbuphine HCl 2.5 mg 09/22/20 18:49 Nalbuphine 10 Mg/1 Ml Inj IV Q2H PRN Itching Naloxone HCl 0.2 mg 09/22/20 18:49 Naloxone 2 Mg/2 Ml Inj IV Q5M PRN Respiratory sedation Ondansetron HCl 4 mg 09/22/20 19:40 Ondansetron 4 Mg/2 Ml Inj IV Q8H PRN Nausea And Vomiting Oxycodone/Acetaminophen 1 tab 09/22/20 19:40 09/22/20 23:21 Oxycodone /Acetaminophen 5-325mg Tab PO 1 tab Q6H PRN Administration Pain, Moderate (4-6) Promethazine HCl 25 mg 09/22/20 19:40 Promethazine 25 Mg Rect Supp [place] Q6H PRN Nausea And Vomiting Promethazine HCl 25 mg 09/22/20 19:40 Promethazine 25 Mg Tab PO Q6H PRN Nausea And Vomiting Sertraline HCl 25 mg 09/24/20 13:00 09/24/20 13:48 Sertraline 25 Mg Tab PO 25 mg QDAY MAEVE Administration Witch Sherron/Glycerin 1 each 09/22/20 19:40 Witch Sherron/ Glycerin Pad TP PRN PRN Hemorrhoid/cleansing/soothing
--- NOTE | 2020-09-24 20:46 | Discharge Summary ---
Providers - Providers Date of Admission: 09/22/20 19:40 Date of discharge: 09/24/20 Attending physician: RAINE HAGEN 09/23/20 10:53 psychiatry consult [Consult to Mental Health] [CONS] Routine Reason For Exam: with hx of depression 09/23/20 10:58 psychiatry consult [Consult to Mental Health] [CONS] Routine Reason For Exam: with hx of depression and marijuana use Primary care physician: DARIANA FALCON Hospitalization Reason for admission: rupture of membranes (and augmentation of labor), IUP at term Delivery: Episiotomy: none Laceration: none complications: none Discharge diagnosis: IUP at term delivered Hospital course: Term IUP came to hospital with SROM and given pitocin augmentation, PCN for unknown GBS and pt had precipitous delivery in bed. pt has history of depression and consult was done to psychiatrist who evaluated pt and recommended outpatient managment with zoloft med 25mg daily. uneventful course and pt denied any SI/HI/AVH. Condition at discharge: Good Disposition: DC-01 TO HOME OR SELFCARE - Discharge Diagnoses (1) Normal spontaneous vaginal delivery Status: Acute Plan - Discharge Medications Prescriptions: Ibuprofen [Motrin] 800 mg PO Q8HR PRN 21 Days #30 tablet PRN Reason: Pain, Moderate (4-6) Sertraline [Zoloft] 25 mg PO QDAY #30 tab - Provider Discharge Summary Additional instructions: [] Smoking cessation referral if applicable(refer to patient education folder for contact #) [] Refer to [facility] Booklet Call your doctor immediately for: * Fever > 100.5 * Heavy vaginal bleeding ( >1 pad per hour) * Severe persistent headache * Shortness of breath * Reddened, hot, painful area to leg or breast * Drainage or odor from incision. * Keep incision clean and dry at all times and follow doctor's instructions regarding bathing/showering - Follow up plan Follow up: DARIANA FALCON MD [Primary Care Provider] - 7 Days Forms: [facility] Discharge Summary
== END 2020-09-24 21:50 | disposition home or self-care (01) | DRG 775 ==
LOC: TRG 14:32 → APU 14:34 → LD 16:15 → TRG 19:40 → LD 19:40 → OB 23:03
PROVIDERS: ADMIT Obstetrics & Gynecology; ATTEND Obstetrics & Gynecology
PROC: 10E0XZZ Delivery of Products of Conception, External Approach (ICD-10-PCS; principal; 2020-09-22)
PROC: 3E0R3BZ Introduction of Anesthetic Agent into Spinal Canal, Percutaneous Approach (ICD-10-PCS; 2020-09-22)
PROC: 00HU33Z Insertion of Infusion Device into Spinal Canal, Percutaneous Approach (ICD-10-PCS; 2020-09-22)
DX: O62.3 Precipitate labor (principal); O99.344 Other mental disorders complicating childbirth; F32.9 Major depressive disorder, single episode, unspecified; Z20.822 Contact with and (suspected) exposure to COVID-19; O99.324 Drug use complicating childbirth; F12.90 Cannabis use, unspecified, uncomplicated; Z3A.38 38 weeks gestation of pregnancy; Z37.0 Single live birth; Z79.899 Other long term (current) drug therapy
CPT/HCPCS: 36415; 59025; 84112; 85014; 85018; 85025; 86850; 86900; 86901; G0378; J0290; J0595; J2590; J7120; U0003

== ENCOUNTER 2021-06-06 11:48 | Emergency (ER) | payer MEDICAID ==
[2021-06-06] MEDS ORDERED: oxyCODONE /ACETAMINOPHEN 5-325MG TAB PO PRN (14:33)
[2021-06-06] MEDS ORDERED: diphenhydrAMINE 25 MG CAP PO ONE (14:33)
[2021-06-06] MEDS ORDERED: LIDOCAINE-MPF (1%) 10 MG/1 ML VIAL 5 ML INFILTRATI ONE (14:33)
--- NOTE | 2021-06-06 14:41 | Emergency Department Report ---
- General Chief complaint: Skin/Abscess/Foreign Body Stated complaint: ARM CYST PAIN Time Seen by Provider: 06/06/21 13:19 Source: patient Mode of arrival: Ambulatory Limitations: No Limitations - History of Present Illness Initial comments: The patient was evaluated in the emergency department for symptoms described in the history of present illness. He/she was evaluated in the context of the global COVID-19 pandemic, which necessitated consideration that the patient might be at risk for infection with the virus that causes COVID-19. Institutional protocols and algorithms that pertain to the evaluation of patients at risk for COVID-19 are in a state of rapid change based on information released by regulatory bodies including the CDC and federal and state organizations. These policies and algorithms were followed during the patient's care in the emergency department. Please note that these policies, procedures and recommendations changed on a rapid basis. 25-year-old -[place]ones[place] female presents to the emergency room complaining of a abscess under her right axillary x3 days. Patient states she has a history of them but this seems to be the worst one. Patient denies any fever chills reports is painful to move her arm. She denies any drainage coming from the wound. MD complaint: abscess/boil Onset/Timin -: week(s) Tetanus Up to Date: yes Location: RUE, R hand Severity scale (0 -10): 9 (Axillary) Quality: burning, stabbing, sharp Consistency: constant Improves with: none Worsens with: palpation, movement Associated symptoms: denies other symptoms Treatments Prior to Arrival: none - Related Data Previous Rx's Medication Instructions Recorded Last Taken Type Triamcinolone 0.5% [Kenalog 0.5% 1 applic TP TID #1 tube 01/22/19 Unknown Rx CREAM] predniSONE [Deltasone] 20 mg PO DAILY #5 tablet 01/22/19 Unknown Rx Ibuprofen [Motrin] 800 mg PO Q8HR PRN 21 Days #30 09/24/20 Unknown Rx tablet Sertraline [Zoloft] 25 mg PO QDAY #30 tab 09/24/20 Unknown Rx Sulfamethoxazole/Trimethoprim 1 each PO BID 10 Days #20 tablet 06/06/21 Unknown Rx [Bactrim DS TAB] Allergies Allergy/AdvReac Type Severity Reaction Status Date / Time No Known Allergies Allergy Verified 09/22/20 14:59 Abscess Boil HPI - HPI Chief Complaint: Skin/Abscess/Foreign Body Stated Complaint: ARM CYST PAIN Time Seen by Provider: 06/06/21 13:19 Home Medications: Previous Rx's Medication Instructions Recorded Last Taken Type Triamcinolone 0.5% [Kenalog 0.5% 1 applic TP TID #1 tube 01/22/19 Unknown Rx CREAM] predniSONE [Deltasone] 20 mg PO DAILY #5 tablet 01/22/19 Unknown Rx Ibuprofen [Motrin] 800 mg PO Q8HR PRN 21 Days #30 09/24/20 Unknown Rx tablet Sertraline [Zoloft] 25 mg PO QDAY #30 tab 09/24/20 Unknown Rx Sulfamethoxazole/Trimethoprim 1 each PO BID 10 Days #20 tablet 06/06/21 Unknown Rx [Bactrim DS TAB] Allergies/Adverse Reactions: Allergies Allergy/AdvReac Type Severity Reaction Status Date / Time No Known Allergies Allergy Verified 09/22/20 14:59 ED Review of Systems ROS: Stated complaint: ARM CYST PAIN Other details as noted in HPI Comment: All other systems reviewed and negative ED Past Medical Hx - Past Medical History Hx Hypertension: No Hx Heart Attack/AMI: No Hx Congestive Heart Failure: No Hx Diabetes: No Hx Deep Vein Thrombosis: No Hx Renal Disease: No Hx Sickle Cell Disease: No Hx Seizures: No Hx Asthma: Yes (childhood asthma) Hx COPD: No Hx HIV: No - Social History Smoking Status: Never Smoker - Medications Home Medications: Home Medications Medication Instructions Recorded Confirmed Last Taken Type Triamcinolone 0.5% [Kenalog 0.5% 1 applic TP TID #1 tube 01/22/19 09/24/20 Unknown Rx CREAM] predniSONE [Deltasone] 20 mg PO DAILY #5 tablet 01/22/19 09/24/20 Unknown Rx Ibuprofen [Motrin] 800 mg PO Q8HR PRN 21 Days #30 09/24/20 Unknown Rx tablet Sertraline [Zoloft] 25 mg PO QDAY #30 tab 09/24/20 Unknown Rx Sulfamethoxazole/Trimethoprim 1 each PO BID 10 Days #20 tablet 06/06/21 Unknown Rx [Bactrim DS TAB] ED Physical Exam - General Limitations: No Limitations General appearance: alert, in no apparent distress - Head Head exam: Present: atraumatic, normocephalic - Eye Eye exam: Present: normal appearance - ENT ENT exam: Present: normal exam, normal external ear exam - Neck Neck exam: Present: normal inspection, full ROM - Respiratory Respiratory exam: Absent: respiratory distress, accessory muscle use - Cardiovascular Cardiovascular Exam: Present: regular rate - GI/Abdominal GI/Abdominal exam: Present: soft. Absent: distended, tenderness - Extremities Exam Extremities exam: Present: normal inspection, full ROM - Back Exam Back exam: Present: normal inspection, full ROM - Neurological Exam Neurological exam: Present: alert, oriented X3, normal gait - Psychiatric Psychiatric exam: Present: normal affect, normal mood - Expanded Skin Exam Expanded Type of lesion: Present: abscess Distribution of rash: RUE (Axillary) Description of rash: Present: fluctuant, indurated ED Course Vital Signs 06/06/21 13:12 Temperature 98.0 F Pulse Rate 84 Respiratory 16 Rate Blood Pressure 108/71 O2 Sat by Pulse 99 Oximetry - I & D Right Shoulder Type of Procedure: Simple Site: right axillary Blade Size: 11 I & D Procedure: sterile drapes applied, sterile dressing applied, gauze wick p laced, no betadine prep (ChloraPrep) Progress: Tolerated well ED Medical Decision Making - Medical Decision Making 25-year-old -[place]onese female presents to the emergency room complaining of a abscess under her right axillary x5 days. Patient states she has a history of them but this seems to be the worst one. Patient denies any fever chills reports is painful to move her arm. She denies any drainage coming from the wound. Pain medication orders have been placed. Requested for room to do procedure. Critical care attestation.: If time is entered above; I have spent that time in minutes in the direct care of this critically ill patient, excluding procedure time. ED Disposition Clinical Impression: Abscess of axilla, right, Rash of secondary syphilis Disposition: HOME / SELF CARE / HOMELESS Is pt being admited?: No Does the pt Need Aspirin: No Condition: Stable Instructions: Incision and Drainage, Care After, Skin Abscess, [id number] Additional Instructions: Complete antibiotics as prescribed. Pain medication as needed. Return back in 3 days to have packing removed. Prescriptions: Sulfamethoxazole/Trimethoprim [Bactrim DS TAB] 1 each PO BID 10 Days #20 tablet Referrals: PRIMARY CARE, [Primary Care Provider] - 3-5 Days [facility] [Outside] - 3-5 Days Forms: Work/School Release Form(ED) Time of Disposition: 17:45
[2021-06-06] MEDS ORDERED: PENICILLIN G BENZATHINE 1.2 MILLION UNIT/2 ML INJ IM ONE (17:47)
[2021-06-06 18:01] VITALS: BP 110/71
== END 2021-06-06 18:38 | disposition home or self-care (01) ==
LOC: ED 11:48
DX: L02.411 Cutaneous abscess of right axilla (principal); A51.39 Other secondary syphilis of skin; J45.909 Unspecified asthma, uncomplicated
CPT/HCPCS: 10060; 96372; 99282; J0561; J3490

== ENCOUNTER 2021-09-15 20:08 | Emergency (ER) | payer MEDICAID ==
[2021-09-16] MEDS ORDERED: SODIUM CHLORIDE 0.9% 1000 ML 1,000 ML IV ONE (00:47)
--- NOTE | 2021-09-16 01:33 | Emergency Department Report ---
ED General Adult HPI - General Chief complaint: Dizziness Stated complaint: BODY NUMBNESS/RAPID HEARTBEAT Time Seen by Provider: 09/16/21 00:32 Source: patient Mode of arrival: Ambulatory Limitations: No Limitations - History of Present Illness Initial comments: Patient 25-year-old female who presents for vague complaints of body ache intermittent numbness and tingling of bilateral arms and right foot. Is an acute on chronic event. Patient denies fall injury or trauma recent. Patient rates symptoms at 3/10, symptoms are exacerbated by bending twisting. Symptoms are relieved by stretching. Patient does endorse decreased p.o. intake. However there is been no fevers, chills, nausea no vomiting. Last menstrual cycle 2 weeks ago. Patient states secondary complaint of dysuria and frequency. Patient denies pelvic pain or vaginal discharge. - Related Data Previous Rx's Medication Instructions Recorded Last Taken Type Triamcinolone 0.5% [Kenalog 0.5% 1 applic TP TID #1 tube 01/22/19 Unknown Rx CREAM] predniSONE [Deltasone] 20 mg PO DAILY #5 tablet 01/22/19 Unknown Rx Ibuprofen [Motrin] 800 mg PO Q8HR PRN 21 Days #30 09/24/20 Unknown Rx tablet Sertraline [Zoloft] 25 mg PO QDAY #30 tab 09/24/20 Unknown Rx Sulfamethoxazole/Trimethoprim 1 each PO BID 10 Days #20 tablet 06/06/21 Unknown Rx [Bactrim DS TAB] cephALEXin [Keflex] 500 mg PO Q12HR 7 Days #14 cap 09/16/21 Unknown Rx Allergies Allergy/AdvReac Type Severity Reaction Status Date / Time No Known Allergies Allergy Verified 09/22/20 14:59 ED Review of Systems ROS: Stated complaint: BODY NUMBNESS/RAPID HEARTBEAT Other details as noted in HPI Constitutional: denies: chills, fever Eyes: denies: eye pain, eye discharge, vision change ENT: denies: ear pain, throat pain Respiratory: denies: cough, shortness of breath, wheezing Cardiovascular: denies: chest pain, palpitations, dyspnea on exertion, orthopnea Endocrine: no symptoms reported Gastrointestinal: denies: abdominal pain, nausea, vomiting, diarrhea, constipation, melena Genitourinary: frequency. denies: urgency, dysuria, hematuria, discharge Musculoskeletal: as per HPI. denies: back pain Skin: denies: rash, lesions Neurological: denies: headache, weakness, paresthesias, vertigo Psychiatric: denies: anxiety, depression Hematological/Lymphatic: denies: easy bleeding, easy bruising ED Past Medical Hx - Past Medical History Hx Hypertension: No Hx Heart Attack/AMI: No Hx Congestive Heart Failure: No Hx Diabetes: No Hx Deep Vein Thrombosis: No Hx Renal Disease: No Hx Sickle Cell Disease: No Hx Seizures: No Hx Asthma: Yes (childhood asthma) Hx COPD: No Hx HIV: No - Social History Smoking Status: Never Smoker - Medications Home Medications: Home Medications Medication Instructions Recorded Confirmed Last Taken Type Triamcinolone 0.5% [Kenalog 0.5% 1 applic TP TID #1 tube 01/22/19 09/24/20 Unknown Rx CREAM] predniSONE [Deltasone] 20 mg PO DAILY #5 tablet 01/22/19 09/24/20 Unknown Rx Ibuprofen [Motrin] 800 mg PO Q8HR PRN 21 Days #30 09/24/20 Unknown Rx tablet Sertraline [Zoloft] 25 mg PO QDAY #30 tab 09/24/20 Unknown Rx Sulfamethoxazole/Trimethoprim 1 each PO BID 10 Days #20 tablet 06/06/21 Unknown Rx [Bactrim DS TAB] cephALEXin [Keflex] 500 mg PO Q12HR 7 Days #14 cap 09/16/21 Unknown Rx ED Physical Exam - General Limitations: No Limitations General appearance: alert, in no apparent distress - Head Head exam: Present: atraumatic, normocephalic - Eye Eye exam: Present: normal appearance, PERRL, EOMI Pupils: Present: normal accommodation - ENT ENT exam: Present: normal orophraynx, mucous membranes moist, TM's normal bilaterally, normal external ear exam - Neck Neck exam: Present: normal inspection, full ROM. Absent: tenderness, lymphadenopathy, thyromegaly - Expanded Neck Exam Expanded Neck exam: Present: tenderness - Respiratory Respiratory exam: Present: normal lung sounds bilaterally. Absent: wheezes, stridor, chest wall tenderness - Cardiovascular Cardiovascular Exam: Present: regular rate, normal rhythm, normal heart sounds. Absent: systolic murmur, diastolic murmur, rubs, gallop - GI/Abdominal GI/Abdominal exam: Present: soft, normal bowel sounds. Absent: distended, tenderness, guarding, rebound, rigid, bruit, hernia - Rectal Rectal exam: Present: deferred - Extremities Exam Extremities exam: Present: normal inspection, full ROM, normal capillary refill. Absent: tenderness - Back Exam Back exam: Present: normal inspection, full ROM. Absent: CVA tenderness (R), CVA tenderness (L) - Neurological Exam Neurological exam: Present: alert, oriented X3, CN II-XII intact, normal gait - Psychiatric Psychiatric exam: Present: normal affect - Skin Skin exam: Present: warm, dry, intact, normal color. Absent: rash ED Course Vital Signs 09/15/21 21:01 Temperature 98.4 F Pulse Rate 91 H Respiratory 16 Rate Blood Pressure 127/79 O2 Sat by Pulse 100 Oximetry ED Medical Decision Making - Lab Data Result diagrams: 09/16/21 00:52 09/16/21 00:52 Labs 09/16/21 09/16/21 09/16/21 00:52 00:52 Unknown WBC 5.8 RBC 5.22 H Hgb 12.8 Hct 41.0 MCV 79 MCH 25 L MCHC 31 RDW 17.6 H Plt Count 198 Lymph % (Auto) 48.7 H [place] % (Auto) 10.4 H Eos % (Auto) 0.9 Baso % (Auto) 0.6 Lymph # (Auto) 2.8 [place] # (Auto) 0.6 Eos # (Auto) 0.0 Baso # (Auto) 0.0 Seg Neutrophils % 39.4 L Seg Neutrophils # 2.3 Sodium 142 Potassium 3.3 L Chloride 104.9 Carbon Dioxide 27 Anion Gap 13 BUN 15 Creatinine 0.8 Estimated GFR > 60 BUN/Creatinine Ratio 19 Glucose 80 Calcium 9.2 Total Bilirubin 1.00 AST 13 ALT 9 Alkaline Phosphatase 53 Total Protein 7.5 Albumin 4.4 Albumin/Globulin Ratio 1.4 Urine Color Yellow Urine Turbidity Clear Urine pH 5.0 Ur Specific [place] 1.029 Urine Protein 30 mg/dl Urine Glucose (UA) Neg Urine Ketones Neg Urine Blood Mod Urine Nitrite Neg Urine Bilirubin Neg Urine Urobilinogen 4.0 Ur Leukocyte Esterase Neg Urine WBC (Auto) 3.0 Urine RBC (Auto) 29.0 U Epithel Cells (Auto) 2.0 Urine Bacteria (Auto) 4+ Urine Mucus 3+ - EKG Data EKG shows normal: sinus rhythm, axis, intervals, QRS complexes, ST-T waves Rate: normal - EKG Data When compared to previous EKG there are: previous EKG unavailable Interpretation: normal EKG (NSR NSTEMI ekg interp by ed attending. ) - Medical Decision Making Labs noted normal urine noted for bacteria, plan we will treat for dysuria, patient is tolerating p.o. hydration and intake without symptoms at this time. Patient will follow-up primary care doctor in 2 to 3 days. This is urinary frequency, musculoskeletal pain. Patient verbalized agreement understanding with discharge plan. Patient DC'd home in stable condition at this time Critical care attestation.: If time is entered above; I have spent that time in minutes in the direct care of this critically ill patient, excluding procedure time. ED Disposition Clinical Impression: Urinary frequency, Musculoskeletal pain of left lower extremity Disposition: HOME / SELF CARE / HOMELESS Is pt being admited?: No Does the pt Need Aspirin: No Condition: Stable Additional Instructions: Take medications as prescribed, follow-up with your primary care doctor in 2 to 3 days. Return to emergency department should symptoms worsen. Prescriptions: cephALEXin [Keflex] 500 mg PO Q12HR 7 Days #14 cap Referrals: SIMIN BOWLING MD [Staff Physician] - 3-5 Days Forms: Work/School Release Form(ED) Time of Disposition: 05:07
[2021-09-16 01:44] LABS: Basophils % (Auto) 0.6 % (0.0-1.8); Eosinophils % (Auto) 0.9 % (0.0-4.3); Hemoglobin 12.8 gm/dl (10.1-14.3); Lymphocytes # (Auto) 2.8 K/mm3 (1.2-5.4); Lymphocytes % (Auto) 48.7 % (13.4-35.0); Mean Corpuscular HGB Conc 31 % (30-34); Mean Corpuscular Volume 79 fl (79-97); Monocytes # (Auto) 0.6 K/mm3 (0.0-0.8); Monocytes % (Auto) 10.4 % (0.0-7.3); Platelet Count 198 K/mm3 (140-440); Red Blood Count 5.22 M/mm3 (3.65-5.03); Red Cell Distribution Width 17.6 % (13.2-15.2)
[2021-09-16 02:05] LABS: Alanine Aminotransferase 9 units/L (7-56); Albumin 4.4 g/dL (3.9-5); BUN/Creatinine Ratio 19; Blood Urea Nitrogen 15 mg/dL (7-17); Calcium 9.2 mg/dL (8.4-10.2); Hemolysis Index 4
[2021-09-16 04:30] LABS: Bacteria,Urine 4+ /HPF (Negative); Bilirubin,Urine NEG (Negative); Blood,Urine MOD (Negative); Color,Urine Yellow (Yellow); Mucus,Urine 3+ /HPF
[2021-09-16 05:32] VITALS: BP 94/55
--- NOTE | 2021-09-19 08:27 | Electrocardiograph Report ---
[facility] Test Date: 2021-09-16 Test Time: 03:03:50 Pat Name: ROSALBA SRIVASTAVA Department: Room: Gender: F [employer] Helper: [id number] : 1995 Requested By: ZEKE CARPENTER Order Number: [id number] Reading MD: Kathie Diggs Measurements Intervals [place] Rate: 67 P: 62 DC: 153 QRS: 72 QRSD: 86 T: 70 QT: 430 QTc: 454 Interpretive Statements Sinus rhythm No previous ECG available for comparison Electronically Signed On 09-19-2021 8:27:17 EDT by Kathie Diggs
== END 2021-09-16 06:16 | disposition home or self-care (01) ==
LOC: ED 20:08
DX: M79.18 Myalgia, other site (principal); R30.0 Dysuria
CPT/HCPCS: 36415; 80053; 81001; 85025; 93005; 96360; 99283; J7030; Q0162